=== PATIENT | female | born 1995 | race Caucasian/White ===

== ENCOUNTER 2017-06-18 17:35 | Emergency (ER) | payer OTHER ==
[2017-06-18 17:49] VITALS: BP 107/51
--- NOTE | 2017-06-18 18:28 | UC ---
Abdominal Pain Female HPI - HPI Summary HPI Summary: Patient presents with complaints of left sided flank pain onset one day onset, she states the pain comes in "spasms" and when it hits it doubles her over. She denies any fever, chills, injury, abdominal pain, nausea, vomiting, diarrhea. She could not state anything that makes it worse, or better. She denies any dysuria, hematuria abnormal vaginal discharge, or bleeding. - History of Current Complaint Chief Complaint: UCGeneralIllness Stated Complaint: BACK PAIN Time Seen by Provider: 06/18/17 18:01 Hx Obtained From: Patient Hx Last Menstrual Period: 05/10/17 Onset/Duration: Sudden Onset, Lasting Days Timing: Constant Severity Initially: Severe Severity Currently: Mild Location: Other - left flank Radiates to: Flank Character: Sharp Aggravating Factor(s): Nothing Alleviating Factor(s): Nothing Associated Signs and Symptoms: Positive: Negative Allergies/Adverse Reactions: Allergies Allergy/AdvReac Type Severity Reaction Status Date / Time Amoxicillin Allergy Intermediate Hives Unverified 06/18/17 17:39 Cephalexin [From Keflex] Allergy Intermediate Hives Unverified 06/18/17 17:39 Clavulanic Acid Allergy Intermediate Hives Unverified 06/18/17 17:39 [From Augmentin] PMH/Surg Hx/FS Hx/Imm Hx Previously Healthy: Yes - Surgical History Surgical History: None Surgery Procedure, Year, and Place: L foot surgery when child - Family History Known Family History: Positive: None - Social History Occupation: Employed Full-time Lives: Alone Alcohol Use: None Substance Use Type: Marijuana Smoking Status (MU): Never Smoked Tobacco Type: Cigarettes Amount Used/How Often: occasional Have You Smoked in the Last Year: Yes - Immunization History Most Recent Influenza Vaccination: [employer] exemption from immunizations Review of Systems Constitutional: Negative Skin: Negative Eyes: Negative ENT: Negative Respiratory: Negative Cardiovascular: Negative Gastrointestinal: Negative Genitourinary: Negative Motor: Negative Neurovascular: Negative Musculoskeletal: Other: - left flank pain Neurological: Negative Psychological: Negative All Other Systems Reviewed And Are Negative: Yes Physical Exam Triage Information Reviewed: Yes Appearance: Well-Appearing Vital Signs: Initial Vital Signs Temp 98.8 F 06/18/17 17:40 Pulse 72 06/18/17 17:40 Resp 18 06/18/17 17:40 BP 107/51 06/18/17 17:40 Pulse Ox 99 06/18/17 17:40 Vital Signs Reviewed: Yes Eye Exam: Normal ENT Exam: Normal Dental Exam: Normal Neck exam: Normal Neck: Positive: 1 Respiratory Exam: Normal Cardiovascular Exam: Normal Abdominal Exam: Normal Musculoskeletal Exam: Normal Skin Exam: Normal Abd Pain Female Course/Dx - Course Course Of Treatment: Patient presents with nontraumatic left sided flank pain. UA revealed ketones, bilirubin. I did not have and could not work up flank pain in the department so the patient was referred to the ED/ I told her to go direclty to the ED. Her mother was with her and could escort the patient to the ER. Discharged in stable condition. - Differential Dx/Diagnosis Differential Diagnosis: Other - flank pain Provider Diagnoses: flank pain Discharge - Discharge Plan Condition: Stable Disposition: HOME Patient Education Materials: Flank Pain (ED) Referrals: Anders Santos MD [Primary Care Provider] -
== END 2017-06-18 18:25 | disposition home or self-care (01) ==
LOC: UCEAST 17:35
DX: R10.9 Unspecified abdominal pain (principal); Z32.02 Encounter for pregnancy test, result negative
CPT/HCPCS: 81003; 84702; 99212; G0463

== ENCOUNTER → 2017-06-18 18:47 | Emergency (ER) | payer OTHER ==
[~2017-06-18 18:47] MED LIST: NS 0.9% 1000 ML* 2,000 ML IV ONE
--- NOTE | 2017-06-18 21:04 | ED ---
GI/ HPI - HPI Summary HPI Summary: 21F presents with left flank pain for past 4 days. She states the pain is sharp. She states the pain is intermittent. She denies any SOB or chest pain. She states the pain feels underneath the muscles. It is located on left side under ribs. She states she had this pain with mono a couple years ago. She denies any dysuria, hematuira, frequency, urgency. She denies any vaginal discharge. She denies any abdominal pain. She denies any n/v/d. - History of Current Complaint Chief Complaint: EDFlankPain Time Seen by Provider: 06/18/17 20:53 Stated Complaint: PAIN IN BACK Hx Last Menstrual Period: 05/10/17 Pain Intensity: 3 - Allergy/Home Medications Allergies/Adverse Reactions: Allergies Allergy/AdvReac Type Severity Reaction Status Date / Time Amoxicillin Allergy Intermediate Hives Verified 06/18/17 21:17 Cephalexin [From Keflex] Allergy Intermediate Hives Verified 06/18/17 21:17 Clavulanic Acid Allergy Intermediate Hives Verified 06/18/17 21:17 [From Augmentin] PMH/Surg Hx/FS Hx/Imm Hx Endocrine/Hematology History: Denies: Hx Anticoagulant Therapy Respiratory History: Reports: Hx Asthma Psychiatric History: Reports: Hx Depression, Hx of Violent Episodes Against Others Denies: Hx Eating Disorder - Surgical History Surgery Procedure, Year, and Place: L foot surgery when child Infectious Disease History: No Infectious Disease History: Denies: Traveled Outside the [place] in Last 30 Days - Family History Known Family History: Positive: None - Social History Alcohol Use: None Substance Use Type: Reports: Marijuana Smoking Status (MU): Never Smoked Tobacco Type: Cigarettes Amount Used/How Often: occasional Have You Smoked in the Last Year: Yes Review of Systems Negative: Fever Negative: Chest Pain Negative: Shortness Of Breath Negative: Abdominal Pain, Vomiting, Diarrhea, Nausea Positive: flank pain. Negative: dysuria, frequency All Other Systems Reviewed And Are Negative: Yes Physical Exam Triage Information Reviewed: Yes Vital Signs On Initial Exam: Initial Vitals Temp Pulse Resp BP Pulse Ox 99.0 F 84 18 115/71 99 06/18/17 18:48 06/18/17 18:48 06/18/17 18:48 06/18/17 18:48 06/18/17 18:48 Vital Signs Reviewed: Yes Appearance: Positive: Well-Appearing Skin: Positive: Warm, Dry Head/Face: Positive: Normal Head/Face Inspection Eyes: Positive: Normal, Conjunctiva Clear ENT: Positive: Normal ENT inspection, Pharynx normal, TMs normal Respiratory/Lung Sounds: Positive: Clear to Auscultation, Breath Sounds Present Cardiovascular: Positive: Normal, RRR Abdomen Description: Positive: Nontender, Soft. Negative: CVA Tenderness (R), CVA Tenderness (L) Bowel Sounds: Positive: Present Musculoskeletal: Positive: Normal Neurological: Positive: Normal Psychiatric: Positive: Normal Diagnostics - Vital Signs Vital Signs Temp Pulse Resp BP Pulse Ox 06/18/17 20:34 98.0 F 72 16 108/60 100 06/18/17 18:48 99.0 F 84 18 115/71 99 - Laboratory Result Diagrams: 06/18/17 21:15 06/18/17 21:15 Lab Statement: Any lab studies that have been ordered have been reviewed, and results considered in the medical decision making process. - CT abd CT Interpretation: No Acute Changes CT Interpretation Completed By: Radiologist MON[place]ERRAT Course/Dx - Course Course Of Treatment: 21F presents with left flank pain for past 4 days. She states the pain is sharp. She states the pain is intermittent. She denies any SOB or chest pain. She states the pain feels underneath the muscles. It is located on left side under ribs. She states she had this pain with mono a couple years ago. She denies any dysuria, hematuira, frequency, urgency. She denies any vaginal discharge. She denies any abdominal pain. She denies any n/v /d. on exam nontender at this time. no CVA tenderness. patient sent from for CT. CT normal. urine appear contaminated so will wait for cultures as no uti symptoms at this time. patient agrees with this approach. normal d-dimer. normal wbc. explained results to patient that do not have a cause for pain. could be GERD or musculoskeletal. told to follow up with primary. patient understand and agrees with plan. - Diagnoses Differential Diagnoses - Female: Pyelonephritis, Urinary Tract Infection, Ureteral Calculi Provider Diagnoses: left side flank pain Discharge - Discharge Plan Condition: Good Disposition: HOME Patient Education Materials: Flank Pain (ED) Referrals: Anders Santos MD [Primary Care Provider] - Additional Instructions: Take Tylenol or ibuprofen every [address] ice or heat on area Follow up with primary within 5 days Return to ED if develop any new or worsening symptoms
[2017-06-18 21:39] LABS: Hematocrit 38 % (35-47); Hemoglobin 12.6 g/dl (12.0-16.0); Mean Corpuscular HGB Conc 34 g/dl (31-36); Mean Corpuscular Hemoglobin 29 pg (27-31); Mean Corpuscular Volume 87 fL (80-97); Mean Platelet Volume 9 um3 (7.4-10.4); Red Blood Count 4.32 10^6/ul (4.0-5.4); Red Cell Distribution Width 13 % (10.5-15); White Blood Count 7.6 10^3/ul (3.5-10.8)
[2017-06-18 21:49] LABS: Urine Bacteria Absent (Absent); Urine Bilirubin Negative (Negative); Urine Glucose Negative (Negative); Urine Nitrite Negative (Negative)
[2017-06-18 21:58] LABS: BUN/Creatinine Ratio 14.8 (8-20); Calcium 9.2 mg/dL (8.6-10.3); EGFR African American 162.5 (>60); EGFR Non-African American 126.4 (>60); Globulin 2.6 g/dL (2-4); Potassium 3.5 mmol/L (3.5-5.0); Total Bilirubin 0.4 mg/dL (0.2-1.0); Total Protein 6.6 g/dL (6.4-8.9)
--- NOTE | 2017-06-18 22:11 | RAD ---
INDICATION: LEFT flank pain. COMPARISON: No relevant prior exams available on the [facility] for comparison. TECHNIQUE: Multidetector CT images were obtained from the lung bases to the ischial tuberosities. Evaluation of the viscera is limited without IV contrast. Multiplanar reformation. REPORT: Unremarkable visualized inferior thorax. Unremarkable unenhanced liver, partially decompressed gallbladder, pancreas, spleen. Negative for CT abnormality of the upper GI, small bowel, retrocecal appendix, colon. Negative for ascites, free air, hernias. Normal adrenal glands. Negative for urolithiasis or hydronephrosis. No conspicuous focal renal lesions. Unremarkable nondilated ureters and urinary bladder. Unremarkable uterus and adnexal regions. Negative for lymphadenopathy. Normal diameter abdominal aorta and iliac arteries. Physiologic distention of the IVC. RIGHT freddy-sacralization of L5. No suspicious focal osseous lesions. IMPRESSION: 1. Negative for obstructive uropathy. 2. Normal appendix documented. 3. No acute abdominal pelvic pathologic process evident.
[2017-06-18 22:33] LABS: Mono Internal Control QC Line Present
[2017-06-18 22:42] VITALS: BP 106/69
== END | disposition home or self-care (01) ==
LOC: ED 18:47
DX: R10.84 Generalized abdominal pain (principal)
CPT/HCPCS: 36415; 74176; 80053; 81003; 81015; 83690; 85025; 85379; 86141; 86308; 87086; 99282

== ENCOUNTER 2017-12-07 19:08 | Emergency (ER) | payer OTHER ==
[2017-12-07 21:48] LABS: ABS Basophils 0.1 10^3/ul (0-0.2); ABS Eosinophils 0.2 10^3/ul (0-0.6); ABS Monocytes 0.7 10^3/ul (0-0.8); ABS Nucleated RBC 0 10^3/ul; Eosinophil % 2.4 % (0-6); Hematocrit 38 % (35-47); Hemoglobin 12.9 g/dl (12.0-16.0); Lymphocyte % 29.9 % (25-47); Mean Corpuscular HGB Conc 34 g/dl (31-36); Mean Corpuscular Hemoglobin 29 pg (27-31); Mean Corpuscular Volume 86 fL (80-97); Mean Platelet Volume 8.7 um3 (7.4-10.4); Nucleated Red Blood Cells % 0; Platelet Count 254 10^3/ul (150-450); Red Blood Count 4.41 10^6/ul (4.0-5.4); Red Cell Distribution Width 13 % (10.5-15)
[2017-12-07 22:07] LABS: EGFR Non-African American 114.2 (>60)
[2017-12-08 00:59] VITALS: BP 111/69
--- NOTE | 2017-12-08 02:46 | ED ---
Jasmin Ballesteros Rebecca, scribed for Ruby Nugent MD on 12/07/17 at 2143 . - HPI Summary HPI Summary: Pt is a 22 y/o F who presents to ED due to concern of ectopic . Pt reports she was seen by [facility] earlier today after learning she was about 1 week ago. While there, she had an US that did not show a fetus , though her HCG was elevated though she is unsure of the number. Pt additionally notes mild upper abdominal pain, ranked 3/10. Denies vaginal bleeding. LNMP began October 27, 2017, confirms she has been having symptoms of . A0. - History of Current Complaint Chief Complaint: EDOBProblems Stated Complaint: 6 WKS PREG/CRAMPING Time Seen by Provider: 12/07/17 21:36 Hx Obtained From: Patient Chief Complaint: Other: - Concern for ectopic Current Severity: Mild Pain Intensity: 3 Location of Pain: Other: - Upper Aggravating Factors: Nothing Alleviating Factors: Nothing Associated Signs and Symptoms: Negative: Vaginal Bleeding or Discharge - Assessment Hx Now: No - Allergies/Home Medications Allergies/Adverse Reactions: Allergies Allergy/AdvReac Type Severity Reaction Status Date / Time amoxicillin Allergy Hives Verified 12/07/17 19:34 cephalexin [From Keflex] Allergy Hives Verified 12/07/17 19:34 clavulanic acid Allergy Hives Verified 12/07/17 19:34 [From Augmentin] PMH/Surg Hx/FS Hx/Imm Hx Endocrine/Hematology History: Denies: Hx Anticoagulant Therapy Respiratory History: Reports: Hx Asthma Psychiatric History: Reports: Hx Depression, Hx of Violent Episodes Against Others Denies: Hx Eating Disorder - Surgical History Surgery Procedure, Year, and Place: L foot surgery when child Infectious Disease History: No Infectious Disease History: Denies: Traveled Outside the [place] in Last 30 Days - Family History Known Family History: Positive: Other - Alcohol and drug dependence - Social History Alcohol Use: None Substance Use Type: Reports: Marijuana Smoking Status (MU): Never Smoked Tobacco Type: Cigarettes Amount Used/How Often: occasional Have You Smoked in the Last Year: Yes Review of Systems Positive: Other - Concern for ectopic Positive: Abdominal Pain Positive: other - NEGATIVE: Vaginal bleeding All Other Systems Reviewed And Are Negative: Yes Physical Exam - Summary Physical Exam Summary: VITAL SIGNS: Reviewed. GENERAL: ~Patient is a well-developed and nourished female who is lying comfortable in the stretcher. Patient is not in any acute respiratory distress. HEAD AND FACE: No signs of trauma. No ecchymosis, hematomas or skull depressions. No sinus tenderness. EYES: PERRLA, EOMI x 2, No injected conjunctiva, no nystagmus. EARS: Hearing grossly intact. Ear canals and tympanic membranes are within normal limits. MOUTH: Oropharynx within normal limits. NECK: Supple, trachea is midline, no adenopathy, no JVD, no carotid bruit, no c- spine tenderness, neck with full ROM. CHEST: Symmetric, no tenderness at palpation LUNGS: Clear to auscultation bilaterally. No wheezing or crackles. CVS: Regular rate and rhythm, S1 and S2 present, no murmurs or gallops appreciated. ABDOMEN: Soft, non-tender. No signs of distention. No rebound no guarding, and no masses palpated. Bowel sounds are normal. EXTREMITIES: FROM in all major joints, no edema, no cyanosis or clubbing. NEURO: Alert and oriented x 3. No acute neurological deficits. Speech is normal and follows commands. SKIN: Dry and warm - Physical Exam Triage Information Reviewed: Yes Diagnostics - Vital Signs Vital Signs Temp Pulse Resp BP Pulse Ox 12/07/17 19:31 98.9 F 97 20 118/67 100 - Laboratory Result Diagrams: 12/07/17 21:34 12/07/17 21:34 Lab Statement: Any lab studies that have been ordered have been reviewed, and results considered in the medical decision making process. - Ultrasound No standard instances Ultrasound Interpretation Completed By: Radiologist - Transvaginal US: There is a possible early intrauterine gestational sac with mean sac diameter of 0.22 cm corresponding to 4 week, 5 day gestation. No pole or yolk sac visualized. Correlation with serial beta hCG and follow-up ultrasound is suggested. There is a 1.9 cm left ovarian cyst possibly a corpus luteum cyst. Normal right ovary containing a few small follicles. No evidence of ovarian torsion. No adnexal masses visualized. Small amount of free fluid in the posterior cul-de-sac. ED physician reviewed this radiology report. Pending official report. Re-Evaluation - Re-Evaluation First Eval Re-Evaluation Time: 00:32 Comment: Pt is doing well. Discussed results with her. Course/Dx - Course Assessment/Plan: Pt is a 22 y/o F who presents to ED due to concern of ectopic . Pt reports she was seen by [facility] earlier today after learning she was about 1 week ago. While there, she had an US that did not show a fetus, though her HCG was elevated though she is unsure of the number. Pt additionally notes mild upper abdominal pain, ranked 3/10. Denies vaginal bleeding. LNMP began October 27, 2017, confirms she has been having symptoms of . A0. Blood work was done. Beta HCG of 1790. Transvaginal US shows possible intrauterine sac with full findings above. Pt will be D/C to home with Dx of IUP with a follow up with [facility]. Allergies noted. - Diagnoses Provider Diagnoses: Intrauterine Discharge - Sign-Out/Discharge Documenting (check all that apply): Discharge/Admit/Transfer - Discharge - Discharge Plan Condition: Stable Disposition: HOME Patient Education Materials: (ED) Referrals: Anders Santos MD [Primary Care Provider] - 3 Days Additional Instructions: Follow up with your [facility] and primary care physician. RETURN TO EMERGENCY DEPARTMENT FOR ANY NEW OR WORSENING SYMPTOMS. The documentation as recorded by the Jasmin villalta Rebecca accurately reflects the service I personally performed and the decisions made by , Ruby Nugent MD.
--- NOTE | 2017-12-08 08:07 | RAD ---
INDICATION: Positive test. Evaluate for ectopic . External ultrasound examination does not reveal definitive . No patient complaints. COMPARISON: None TECHNIQUE/FINDINGS: Transvaginal scans show a tiny cystic structure in the uterus which may represent gestational sac in which case this represents a 4 week 5 day gestation. No pole or yolk sac is identified. There is no adnexal mass or free fluid. The right ovary measures 3.1 x 1.9 x 1.8 cm of the left 5.0 x 3.5 a 2.5 cm. There is a complex 1.9 cm left ovarian cyst, possibly a corpus luteum cyst. IMPRESSION: POSSIBLE EARLY INTRAUTERINE GESTATION. NO ADNEXAL MASS. SUGGEST CORRELATION WITH SERIAL BETA HCGS AND FOLLOW-UP ULTRASONOGRAPHY.
== END 2017-12-08 00:58 | disposition home or self-care (01) ==
LOC: ED 19:08
DX: O26.891 Other specified pregnancy related conditions, first trimester (principal); R10.10 Upper abdominal pain, unspecified; Z3A.01 Less than 8 weeks gestation of pregnancy; Z88.3 Allergy status to other anti-infective agents
CPT/HCPCS: 36415; 76817; 80048; 84702; 85025; 99282